=== PATIENT | male | born 1955 | race Caucasian/White ===

== ENCOUNTER → 2022-11-05 | Outpatient (CLI) | payer MEDICARE ==
[2022-11-05 12:26] LABS: African American GFR (CKD) >90 (>60 ml/min/1.73 sqM); Blood Urea Nitrogen 3 mg/dL (9-20); Non-African American GFR(CKD) >90 (>60 ml/min/1.73 sqM)
--- NOTE | 2022-11-26 12:08 | CT ---
EXAMINATION TYPE: CT chest w con DATE OF EXAM: 11/05/2022 COMPARISON: Outside chest CT report dated September 07, 2021 HISTORY: Solitary pulmonary nodule CT DLP: 404 mGycm. Automated Exposure Control for Dose Reduction was Utilized. TECHNIQUE: CT scan of the thorax is performed following with IV Contrast, patient injected with 70 m L of Isovue 300. FINDINGS: There is delay in report as attempts to obtain outside images and report was performed. Only outside report after several weeks could be obtained. LUNGS: Mild to moderate underlying emphysematous change is present with mild biapical pleural/parench ymal scarring. Small scarlike opacities in the bilateral upper lungs are seen. Largest area of involv ement measures 2.2 x 1.1 cm anterior left upper lobe axial image 21. Mild to minimal bibasilar linear scarring and/or atelectasis. Small upper lung nodules or nodular scarring measure up to 8 x 6 mm pos terior left upper lobe sagittal image 40. No pleural effusion or pneumothorax is seen bilaterally. MEDIASTINUM: There are no greater than 1 cm hilar or mediastinal lymph nodes. No cardiomegaly or pe ricardial effusion is seen. Ectatic ascending aorta up to 3.8 cm axial image 32. Prominent focal jerica nary artery calcification proximal LAD axial image 38. Moderate peripheral calcified plaque in the ar ch with more severe calcified plaque at origin of the 3 great vessels. No definitive significant sten osis. OTHER: Pectus excavatum deformity on sagittal images. IMPRESSION: Mild to moderate emphysematous change with mild/moderate scattered pleural and parenchyma l scarring. Small nodules in the upper lungs up to 8 mm in size. Advise follow-up CT in 3-6 months ti me to reassess as per Fleischner Society recommendations since direct correlation to old outside stud y cannot be performed.
== END | disposition home or self-care (01) ==
LOC: RADCTMAIN 11:38
PROVIDERS: ATTEND Family Medicine
DX: J43.9 Emphysema, unspecified (principal); J98.4 Other disorders of lung; R91.8 Other nonspecific abnormal finding of lung field
CPT/HCPCS: 82565; 84520; 71260; 36415; Q9967

== ENCOUNTER 2022-11-21 10:38 | Emergency (ER) | payer MEDICARE ==
[2022-11-21 11:49] LABS: Basophils # (A) 0.1 k/uL (0-0.2); Basophils % (A) 0 %; Eosinophils # (A) 0.2 k/uL (0-0.7); Eosinophils % (A) 1 %; HCT 45.7 % (39.0-53.0); HGB 15.3 gm/dL (13.0-17.5); Lymphocytes # (A) 2.2 k/uL (1.0-4.8); Lymphocytes % (A) 15 %; MCH 31.9 pg (25.0-35.0); MCHC 33.5 g/dL (31.0-37.0); MCV 95.4 fL (80.0-100.0); Mean Platelet Volume 7.7; Monocytes # (A) 1.1 k/uL (0-1.0); Monocytes % (A) 7 %; Neutrophils % (A) 74 %; Platelet Count 400 k/uL (150-450); RBC 4.79 m/uL (4.30-5.90); RDW 14.4 % (11.5-15.5); WBC 14.8 k/uL (3.8-10.6)
[2022-11-21] MEDS ORDERED: KETOROLAC 15 MG/ML 1 ML VIAL IVP STA (12:02)
[2022-11-21] MEDS ORDERED: methylPREDNISolone SOD SUCCI 125 MG/2 ML VIAL IV STA (12:04)
[2022-11-21] MEDS ORDERED: IPRATROPIUM-ALBUTEROL 3 ML NEB INHALATION STA (12:04)
[2022-11-21 12:11] LABS: Partial Thromboplastin Time 30.1 sec (22.0-30.0); Prothrombin Time 10.6 sec (9.0-12.0)
[2022-11-21 12:17] LABS: ALT 13 U/L (4-49); AST 28 U/L (17-59); African American GFR (CKD) >90 (>60 ml/min/1.73 sqM); Albumin 3.8 g/dL (3.5-5.0); Alkaline Phosphatase 97 U/L (38-126); Anion Gap 7 mmol/L; Blood Urea Nitrogen 4 mg/dL (9-20); Calcium 8.9 mg/dL (8.4-10.2); Carbon Dioxide 29 mmol/L (22-30); Chloride 99 mmol/L (98-107); Glucose 101 mg/dL (74-99); Non-African American GFR(CKD) >90 (>60 ml/min/1.73 sqM); Sodium 135 mmol/L (137-145); Total Bilirubin 0.7 mg/dL (0.2-1.3); Total Protein 6.6 g/dL (6.3-8.2)
--- NOTE | 2022-11-21 12:18 | XR ---
EXAMINATION TYPE: XR chest 2V DATE OF EXAM: 11/21/2022 11:56 AM COMPARISON: Chest radiographs from 11/21/2022 TECHNIQUE: XR chest 2V Frontal and lateral views of the chest. CLINICAL INDICATION:Male, 67 years old with history of difficulty breathing; FINDINGS: Lungs/Pleura: There is flattening of the diaphragm with increased lucency of the lungs. No evidence o f pneumothorax, pleural effusion or focal consolidation. Pulmonary vascularity: Unremarkable. Heart/mediastinum: Cardiomediastinal silhouette is unremarkable. Musculoskeletal: No acute osseous pathology. IMPRESSION: 1. No acute cardiopulmonary disease process. 2. COPD changes.
[2022-11-21] MEDS ORDERED: cefTRIAXone IN SWFI 1,000 MG/10 ML SYRINGE IVP STA (13:49)
[2022-11-21] MEDS ORDERED: AZITHROMYCIN 500 MG TAB PO STA (13:50)
--- NOTE | 2022-11-21 13:51 | ED ---
SOB HPI - General Chief Complaint: Shortness of Breath Stated Complaint: SOB Time Seen by Provider: 11/21/22 10:50 Source: patient Mode of arrival: ambulatory Limitations: no limitations - History of Present Illness Initial Comments: 67-year-old male with past medical history of COPD who presents to the emergency department with shortness of breath. He recently moved here 6 months ago from [place]. He is oxygen dependent. States that he wears oxygen occasionally during the day and every night he wears 2 L. States that he was unable to bring his oxygen with him when he moved across the country and he does not have a nebulizer. Had increasingly worse shortness of breath especially over the last week which he now has a productive cough. He was diagnosed with pneumonia in August and states that his symptoms feel similar. Denies any sick contacts. Has had intermittent fevers. No nausea, vomiting or diarrhea. He denies any chest pain or history of cardiac issues. No calf pain or swelling. No history of DVT or PE. No other alleviating, Perceptin or modifying factors - Related Data Home Medications Medication Instructions Recorded Confirmed Aspirin/Acetaminophen/Caffeine 1 tab PO DAILY PRN 11/21/22 11/21/22 [Excedrin Extra Strength Caplet] Cyanocobalamin (Vitamin B-12) 2,000 mcg PO DAILY 11/21/22 11/21/22 [Vitamin B-12] Multivitamins, Thera [Multivitamin 1 tab PO DAILY 11/21/22 11/21/22 (formulary)] Pantoprazole Sodium [Protonix] 20 mg PO DAILY 11/21/22 11/21/22 Theophylline 12 Hour [Andres-Dur] 300 mg PO DAILY 11/21/22 11/21/22 Previous Rx's Medication Instructions Recorded Albuterol Inhaler [Ventolin Hfa 2 puff INHALATION RT-Q4H PRN #1 11/21/22 Inhaler] each Fluticasone Propion/Salmeterol 2 puff INHALATION RT-BID #1 each 11/21/22 [Advair Hfa 230-21 Mcg Inhaler] Ipratropium-Albuterol Nebulize 3 ml INHALATION Q6HR #90 ml 11/21/22 [Duoneb 0.5 mg-3 mg/3 ml Soln] Levofloxacin [Levaquin] 500 mg PO DAILY #5 tab 11/21/22 Nicotine 14Mg/24Hr Patch [Habitrol 1 patch TRANSDERM DAILY #14 patch 11/21/22 14Mg/24Hr Patch] Nicotine 21Mg/24Hr Patch [Habitrol] 1 each TRANSDERM DAILY #14 patch 11/21/22 Umeclidinium [place] [Incruse 1 puff INHALATION RT-DAILY #1 each 11/21/22 Ellipta] predniSONE [Deltasone] 20 mg PO BID #10 tab 11/21/22 Allergies Allergy/AdvReac Type Severity Reaction Status Date / Time cat dander Allergy Dyspnea Verified 11/21/22 12:26 milk Allergy Unknown Verified 11/21/22 12:26 Childhood Review of Systems ROS Statement: Those systems with pertinent positive or pertinent negative responses have been documented in the HPI. ROS Other: All systems not noted in ROS Statement are negative. Past Medical History Past Medical History: Cancer, Pneumonia Additional Past Medical History / Comment(s): prostate cancer, spinal injury History of Any Multi-Drug Resistant Organisms: None Reported Past Surgical History: Back Surgery, Hernia Repair Additional Past Surgical History / Comment(s): eye surgery Past Psychological History: No Psychological Hx Reported Smoking Status: Current every day smoker Past Alcohol Use History: Daily Past Drug Use History: Marijuana General Exam Limitations: no limitations General appearance: alert, in no apparent distress Head exam: Present: atraumatic, normocephalic, normal inspection Eye exam: Present: normal appearance, PERRL, EOMI. Absent: scleral icterus, conjunctival injection, periorbital swelling ENT exam: Present: normal exam, mucous membranes moist Neck exam: Present: normal inspection. Absent: tenderness, meningismus, l ymphadenopathy Respiratory exam: Present: wheezes, accessory muscle use, decreased breath sounds. Absent: respiratory distress, rales, rhonchi, stridor Cardiovascular Exam: Present: normal rhythm, tachycardia, normal heart sounds. Absent: systolic murmur, diastolic murmur, rubs, gallop, clicks GI/Abdominal exam: Present: soft, normal bowel sounds. Absent: distended, tenderness, guarding, rebound, rigid Extremities exam: Present: normal inspection, full ROM, normal capillary refill. Absent: tenderness, pedal edema, joint swelling, calf tenderness Back exam: Present: normal inspection Neurological exam: Present: alert, oriented X3, CN II-XII intact Psychiatric exam: Present: normal affect, normal mood Skin exam: Present: warm, dry, intact, normal color. Absent: rash Course Vital Signs 11/21/22 11/21/22 11/21/22 10:38 10:58 11:43 Temperature 98.2 F Pulse Rate 121 H 98 Respiratory 20 18 18 Rate Blood Pressure 144/80 140/88 O2 Sat by Pulse 94 L 97 Oximetry 11/21/22 11/21/22 11/21/22 12:00 13:00 13:03 Temperature Pulse Rate 99 104 H 98 Respiratory 18 20 Rate Blood Pressure 132/87 149/86 O2 Sat by Pulse 96 96 Oximetry 11/21/22 11/21/22 11/21/22 13:44 14:00 15:21 Temperature 98.3 F Pulse Rate 107 H 106 H 98 Respiratory 22 18 24 Rate Blood Pressure 129/78 124/93 O2 Sat by Pulse 94 L 94 L Oximetry Medical Decision Making - Medical Decision Making Upon arrival patient was placed into room 27. There are history and physical exam was performed. Patient is placed on 2 L of oxygen. Breathing treatments ordered. Laboratory studies are conducted reviewed. Mild cytosis of 14.8. Covid and influenza are not detected. Chest x-ray demonstrates no acute process. Recommended treatment for tracheobronchitis with antibiotics and steroids. Patient was agreeable to this. I am able to set him up with oxygen and a nebulizer. Medications are sent to the pharmacy. He is to take m edications as directed and follow up with his primary care doctor should he have any new or worsening symptoms he should return to the emergency room. Patient agreeable to treatment plan he was discharged home in stable condition - Lab Data Result diagrams: 11/21/22 11:17 11/21/22 11:17 Lab Results 11/21/22 11/21/22 11/21/22 Range/Units 11:11 11:11 11:17 WBC 14.8 H (3.8-10.6) k/uL RBC 4.79 (4.30-5.90) m/uL Hgb 15.3 (13.0-17.5) gm/dL Hct 45.7 (39.0-53.0) % MCV 95.4 (80.0-100.0) fL MCH 31.9 (25.0-35.0) pg MCHC 33.5 (31.0-37.0) g/dL RDW 14.4 (11.5-15.5) % Plt Count 400 (150-450) k/uL MPV 7.7 Neutrophils % 74 % Lymphocytes % 15 % Monocytes % 7 % Eosinophils % 1 % Basophils % 0 % Neutrophils # 11.0 H (1.3-7.7) k/uL Lymphocytes # 2.2 (1.0-4.8) k/uL Monocytes # 1.1 H (0-1.0) k/uL Eosinophils # 0.2 (0-0.7) k/uL Basophils # 0.1 (0-0.2) k/uL PT (9.0-12.0) sec INR (<1.2) APTT (22.0-30.0) sec Sodium (137-145) mmol/L Potassium (3.5-5.1) mmol/L Chloride (98-107) mmol/L Carbon Dioxide (22-30) mmol/L Anion Gap mmol/L BUN (9-20) mg/dL Creatinine (0.66-1.25) mg/dL Est GFR (CKD-EPI)AfAm (>60 ml/min/1.73 sqM) Est GFR (CKD-EPI)NonAf (>60 ml/min/1.73 sqM) Glucose (74-99) mg/dL Plasma Lactic Acid Chin (0.7-2.0) mmol/L Calcium (8.4-10.2) mg/dL Total Bilirubin (0.2-1.3) mg/dL AST (17-59) U/L ALT (4-49) U/L Alkaline Phosphatase (38-126) U/L Troponin I (0.000-0.034) ng/mL NT-Pro-B Natriuret Pep pg/mL Total Protein (6.3-8.2) g/dL Albumin (3.5-5.0) g/dL Coronavirus (PCR) Not Detected (Not Detectd) Influenza Type A RNA Not Detected (Not Detectd) Influenza Type B (PCR) Not Detected (Not Detectd) 11/21/22 11/21/22 11/21/22 Range/Units 11:17 11:17 11:17 WBC (3.8-10.6) k/uL RBC (4.30-5.90) m/uL Hgb (13.0-17.5) gm/dL Hct (39.0-53.0) % MCV (80.0-100.0) fL MCH (25.0-35.0) pg MCHC (31.0-37.0) g/dL RDW (11.5-15.5) % Plt Count (150-450) k/uL MPV Neutrophils % % Lymphocytes % % Monocytes % % Eosinophils % % Basophils % % Neutrophils # (1.3-7.7) k/uL Lymphocytes # (1.0-4.8) k/uL Monocytes # (0-1.0) k/uL Eosinophils # (0-0.7) k/uL Basophils # (0-0.2) k/uL PT 10.6 (9.0-12.0) sec INR 1.0 (<1.2) APTT 30.1 H (22.0-30.0) sec Sodium 135 L (137-145) mmol/L Potassium 4.0 (3.5-5.1) mmol/L Chloride 99 (98-107) mmol/L Carbon Dioxide 29 (22-30) mmol/L Anion Gap 7 mmol/L BUN 4 L (9-20) mg/dL Creatinine 0.57 L (0.66-1.25) mg/dL Est GFR (CKD-EPI)AfAm >90 (>60 ml/min/1.73 sqM) Est GFR (CKD-EPI)NonAf >90 (>60 ml/min/1.73 sqM) Glucose 101 H (74-99) mg/dL Plasma Lactic Acid Chin 1.0 (0.7-2.0) mmol/L Calcium 8.9 (8.4-10.2) mg/dL Total Bilirubin 0.7 (0.2-1.3) mg/dL AST 28 (17-59) U/L ALT 13 (4-49) U/L Alkaline Phosphatase 97 (38-126) U/L Troponin I (0.000-0.034) ng/mL NT-Pro-B Natriuret Pep pg/mL Total Protein 6.6 (6.3-8.2) g/dL Albumin 3.8 (3.5-5.0) g/dL Coronavirus (PCR) (Not Detectd) Influenza Type A RNA (Not Detectd) Influenza Type B (PCR) (Not Detectd) 11/21/22 11/21/22 Range/Units 11:17 11:17 WBC (3.8-10.6) k/uL RBC (4.30-5.90) m/uL Hgb (13.0-17.5) gm/dL Hct (39.0-53.0) % MCV (80.0-100.0) fL MCH (25.0-35.0) pg MCHC (31.0-37.0) g/dL RDW (11.5-15.5) % Plt Count (150-450) k/uL MPV Neutrophils % % Lymphocytes % % Monocytes % % Eosinophils % % Basophils % % Neutrophils # (1.3-7.7) k/uL Lymphocytes # (1.0-4.8) k/uL Monocytes # (0-1.0) k/uL Eosinophils # (0-0.7) k/uL Basophils # (0-0.2) k/uL PT (9.0-12.0) sec INR (<1.2) APTT (22.0-30.0) sec Sodium (137-145) mmol/L Potassium (3.5-5.1) mmol/L Chloride (98-107) mmol/L Carbon Dioxide (22-30) mmol/L Anion Gap mmol/L BUN (9-20) mg/dL Creatinine (0.66-1.25) mg/dL Est GFR (CKD-EPI)AfAm (>60 ml/min/1.73 sqM) Est GFR (CKD-EPI)NonAf (>60 ml/min/1.73 sqM) Glucose (74-99) mg/dL Plasma Lactic Acid Chin (0.7-2.0) mmol/L Calcium (8.4-10.2) mg/dL Total Bilirubin (0.2-1.3) mg/dL AST (17-59) U/L ALT (4-49) U/L Alkaline Phosphatase (38-126) U/L Troponin I <0.012 (0.000-0.034) ng/mL NT-Pro-B Natriuret Pep 421 pg/mL Total Protein (6.3-8.2) g/dL Albumin (3.5-5.0) g/dL Coronavirus (PCR) (Not Detectd) Influenza Type A RNA (Not Detectd) Influenza Type B (PCR) (Not Detectd) - EKG Data EKG Comments: EKG demonstrates sinus tachycardia with a rate of 102. NE interval 146. QRS 64. QTC of 450. No acute ST segment elevations or depressions. EKG interpreted by myself Disposition Clinical Impression: COPD (chronic obstructive pulmonary disease), Tracheobronchitis Disposition: HOME SELF-CARE Condition: Stable Instructions (If sedation given, give patient instructions): COPD (Chronic Obstructive Pulmonary Disease) (ED) Additional Instructions: Please take the inhalers, steroids and antibiotics as directed. They will call you to set up your oxygen at home. Follow-up with your doctor and return for any new or worsening symptoms Prescriptions: Fluticasone Propion/Salmeterol [Advair Hfa 230-21 Mcg Inhaler] 2 puff INHALATION RT-BID #1 each predniSONE [Deltasone] 20 mg PO BID #10 tab Ipratropium-Albuterol Nebulize [Duoneb 0.5 mg-3 mg/3 ml Soln] 3 ml INHALATION Q6HR #90 ml Nicotine 14Mg/24Hr Patch [Habitrol 14Mg/24Hr Patch] 1 patch TRANSDERM DAILY #14 patch Nicotine 21Mg/24Hr Patch [Habitrol] 1 each TRANSDERM DAILY #14 patch Umeclidinium Clear[place] [Incruse Ellipta] 1 puff INHALATION RT-DAILY #1 each Levofloxacin [Levaquin] 500 mg PO DAILY #5 tab Albuterol Inhaler [Ventolin Hfa Inhaler] 2 puff INHALATION RT-Q4H PRN #1 each PRN Reason: Shortness Of Breath Is patient prescribed a controlled substance at d/c from ED?: No Referrals: Elena Duron MD [Primary Care Provider] - 1-2 days [facility] [NON-STAFF] - Time of Disposition: 15:07
[2022-11-21] MEDS ORDERED: HYDROcodone/APAP 10-325MG 1 EACH TAB PO ONE (14:23)
[2022-11-21 15:22] VITALS: BP 124/93; PULSE 98; RESP 24; TEMP 98.3
== END 2022-11-21 15:21 | disposition home or self-care (01) ==
LOC: EC 10:38
DX: J44.9 Chronic obstructive pulmonary disease, unspecified (principal); J40 Bronchitis, not specified as acute or chronic; F17.200 Nicotine dependence, unspecified, uncomplicated; F12.90 Cannabis use, unspecified, uncomplicated; Z20.822 Contact with and (suspected) exposure to COVID-19; Z79.899 Other long term (current) drug therapy; Z91.011 Allergy to milk products; Z91.09 Other allergy status, other than to drugs and biological substances
CPT/HCPCS: 36415; 94640; 93005; 83880; 80053; 83605; 84484; 85025; 85610; 85730; 87502; 87635; 71046; 99285; 96374; 96375 ×2; J2930; J0696; J1885

== ENCOUNTER → 2023-03-26 | Outpatient (CLI) | payer MEDICARE, OTHER ==
[2023-03-26 14:18] LABS: African American GFR (CKD) >90 (>60 ml/min/1.73 sqM); Blood Urea Nitrogen 8 mg/dL (9-20); Non-African American GFR(CKD) >90 (>60 ml/min/1.73 sqM)
--- NOTE | 2023-03-26 15:07 | CT ---
EXAMINATION TYPE: CT chest w con DATE OF EXAM: 03/26/2023 COMPARISON: Prior chest CT November 05, 2022 and older study September 07, 2021 HISTORY: lung nodule CT DLP: 400 mGycm. Automated Exposure Control for Dose Reduction was Utilized. TECHNIQUE: CT scan of the thorax is performed following with IV Contrast, patient injected with 100m l mL of Isovue 300. FINDINGS: LUNGS: Mild to moderate underlying emphysematous change is redemonstrated with mild biapical pleural/ parenchymal scarring. Small scarlike opacities in the bilateral upper lungs are redemonstrated. Large st area of involvement measures approximate 2.2 x 1.4 cm anterolateral left upper lobe axial image 23 not significantly changed from most recent prior. Mild right greater than left bibasilar linear scar ring and/or atelectasis is now present with right-sided findings being more prominent from prior. Sma ll upper lung nodules or nodular scarring measure up to 8 x 6 mm posterior left upper lobe sagittal i mage 76 current study not significantly changed from most recent prior. No pleural effusion or pneumo thorax is seen bilaterally. MEDIASTINUM: There are no new greater than 1 cm hilar or mediastinal lymph nodes. No cardiomegaly o r pericardial effusion is seen. Ectatic ascending aorta up to 3.9 cm axial image 32 is redemonstrated . Coronary artery calcification is again seen. Mild to Moderate peripheral calcified plaque in the ar ch with more severe calcified plaque at origin of the 3 great vessels is redemonstrated. OTHER: Pectus excavatum deformity on sagittal images is again seen. IMPRESSION: Mild to moderate emphysematous change with mild/moderate scattered pleural and parenchyma l scarring. Small nodules or nodular scarring in the upper lungs up to 8 mm in size is stable. No new or enlarging nodules. No significant change from most recent CT. Consider follow-up CT in one year t arianna to document greater than 2 years stability.
== END | disposition home or self-care (01) ==
LOC: RADCTMAIN 13:43
PROVIDERS: ATTEND Family Medicine
DX: J43.9 Emphysema, unspecified (principal); R91.8 Other nonspecific abnormal finding of lung field; J98.4 Other disorders of lung
CPT/HCPCS: 82565; 84520; 71260; 36415; Q9967

== ENCOUNTER → 2023-07-07 | Outpatient (CLI) | payer MEDICARE, OTHER ==
[2023-07-07 20:38] LABS: Testosterone <10.00 ng/dL (86.98-780.10)
== END | disposition home or self-care (01) ==
LOC: LABWHC1 11:52
PROVIDERS: ATTEND Urology
DX: C61 Malignant neoplasm of prostate (principal)
CPT/HCPCS: 36415; 84153; 84403

== ENCOUNTER → 2023-12-26 | Outpatient (CLI) | payer MEDICARE, OTHER ==
[2023-12-26 21:07] LABS: Prostate Specific Antigen 0.06 ng/mL (0.000-6.500)
[2023-12-26 21:40] LABS: Testosterone <10.00 ng/dL (86.98-780.10)
== END | disposition home or self-care (01) ==
LOC: LABWHC1 13:23
PROVIDERS: ATTEND Urology
DX: C61 Malignant neoplasm of prostate (principal)
CPT/HCPCS: 36415; 84153; 84403

== ENCOUNTER → 2024-12-20 | Outpatient (CLI) | payer MEDICARE, OTHER ==
--- NOTE | 2024-12-20 13:31 | CT ---
EXAMINATION TYPE: CT brain wo con DATE OF EXAM: 12/20/2024 1:23 PM COMPARISON: None. CLINICAL INDICATION: Male, 69 years old with history of H02.402 PTOSIS OF LEFT EYELID, PTOSIS OF LEFT EYELID TECHNIQUE: CT of the brain is performed utilizing 3 mm thick sections through the posterior fossa and 3 mm thick sections through the remaining calvarium. Study is performed within 24 hours of arrival to the hospital. Contrast used: mL of , (none if empty) CT DLP: 995.5 mGycm, Automated exposure control for dose reduction was used. FINDINGS: No abnormal hyperdensity is present to suggest an acute intracranial hemorrhage. No mass lesion is evident. Minimal bilateral basal ganglion calcifications present, likely physiologi c. No acute infarcts are evident. Scattered periventricular white matter hypodensity is present, likely on the basis of chronic white matter ischemic changes. Ventricles and sulci are prominent for the patient age. Atrophy may be slightly greater on the left compared to the right. There is opacification of the right sphenoid sinus. Mild mucosal thickenings within mid right ethmoid air cells. Remaining paranasal sinuses air cells are clear. There is some fluid within the inferior right mastoid air cells. Correlate for mild right mastoiditis. Left mastoid air cells are clear IMPRESSION: 1. Atrophy with mild periventricular white matter ischemic type changes. 2. Mild right inferior mastoiditis. 3. No acute intracranial process. Follow-up MRI can be performed as clinically indicated. [facility], , 12/20/2024 1:29 PM
== END | disposition home or self-care (01) ==
LOC: RADCTMAIN 13:04
PROVIDERS: ATTEND Psychiatry & Neurology Neurology
DX: H02.402 Unspecified ptosis of left eyelid (principal); I67.82 Cerebral ischemia; R90.82 White matter disease, unspecified
CPT/HCPCS: 70450

== ENCOUNTER → 2025-01-25 | Outpatient (CLI) | payer MEDICARE, OTHER ==
--- NOTE | 2025-01-25 13:40 | CT ---
EXAMINATION TYPE: CT chest wo con DATE OF EXAM: 01/25/2025 COMPARISON: 03/26/2023 CLINICAL INDICATION: Male, 70 years old with history of COPD; PHH, COPD and asthma TECHNIQUE: CT scan of the thorax is performed without IV contrast. CT DLP: 213.[address] CTDI: mGy Automated exposure control for dose reduction was used. FINDINGS: The focal area of lucency with peripheral interstitial density is again seen in left upper lobe. Over all the abnormality is a little larger than previous based on increased central lucency but no signif icant increased masslike density. There are multiple stable sub-6 mm densities including juxtapleural densities associated with the left fissure and right pleura in the lower lobe posteriorly. There is mild emphysematous change. There is no new or suspicious lung mass or nodule. No airspace consolidation. There is no pleural effusion or pneumothorax. There is a 4 cm dilatation of the ascending thoracic aorta which is stable. There is no mediastinal, hilar or axillary adenopathy. Scanning of the upper abdomen reveals no gross abnormality. No focal osseous lesions are seen. IMPRESSION: 1. Focal area of interstitial scarring with central lucency in the left upper lobe as described above . 2. Scattered stable sub-5 mm nodular densities bilaterally. 3. Moderate emphysematous changes. 4. No acute cardiopulmonary disease. [facility], , 01/25/2025 1:37 PM
== END | disposition home or self-care (01) ==
LOC: RADCTMAIN 13:01
PROVIDERS: ATTEND Internal Medicine Pulmonary Disease
DX: J82.83 Eosinophilic asthma (principal); J44.9 Chronic obstructive pulmonary disease, unspecified; R91.1 Solitary pulmonary nodule; J98.4 Other disorders of lung; J43.9 Emphysema, unspecified
CPT/HCPCS: 71250

== ENCOUNTER → 2025-01-25 | Outpatient (CLI) | payer MEDICARE, OTHER | END | disposition home or self-care (01) | LOC: LABWHC1 13:36 | PROVIDERS: ATTEND Urology | DX: C61 Malignant neoplasm of prostate (principal) | CPT/HCPCS: 36415; 84153 ==